=== PATIENT | female | born 2000 | race Caucasian/White ===

== ENCOUNTER 2020-01-05 21:59 | Emergency (ER) | payer OTHER ==
[~2020-01-05] VITALS: Ht 167.6 cm; Wt 74.8 kg
[2020-01-05 22:05] VITALS: BP_SYST 132
[2020-01-05 23:30] VITALS: BP_SYST 128
== END 2020-01-05 23:36 | disposition home or self-care (01) ==
LOC: SED 21:59
DX: H60.8X2 Other otitis externa, left ear (principal); H92.02 Otalgia, left ear
CPT/HCPCS: 99283

== ENCOUNTER 2020-11-21 12:36 | Emergency (ER) | payer OTHER ==
[~2020-11-21] VITALS: Ht 160 cm; Wt 72.6 kg
[2020-11-21 12:36] VITALS: BP_SYST 120
[2020-11-21] MEDS ORDERED: KETOROLAC TROMETHAMINE 60 MG/2 ML VIAL IM ONE (13:00)
[2020-11-21 13:38] LABS: BASOPHILS % (AUTO) 0.8 % (0.0-2.0); EOSINOPHILS # (AUTO) 0.1 K/uL (0.0-0.4); EOSINOPHILS % (AUTO) 1.3 % (0.0-4.0); HEMATOCRIT 41.3 % (36-48); HEMOGLOBIN 13.7 g/dL (12.0-16.0); MEAN CORPUSCULAR HEMOGLOBIN 29 pg (27-31); MEAN CORPUSCULAR HGB CONC 33 % (32-36); MEAN CORPUSCULAR VOLUME 87 fL (79.0-98.0); MONOCYTES # (AUTO) 0.5 K/uL (0.0-1.0); NEUTROPHILS # (AUTO) 3.3 K/uL (1.8-7.7); NEUTROPHILS % (AUTO) 55.9 % (40.0-70.0); PLATELET COUNT (AUTO) 222 K/uL (130-430); RED BLOOD CELL COUNT(AUTO) 4.78 MIL/uL (4.2-6.2); RED CELL DISTRIBUTION WIDTH 13.4 % (9.0-15.0)
[2020-11-21 13:54] LABS: CALCIUM 8.2 mg/dL (8.4-11.0); CREATININE 0.65 mg/dL (0.55-1.30)
[2020-11-21 14:01] LABS: ALBUMIN 3.7 g/dL (3.4-4.8); TOTAL BILIRUBIN 0.4 mg/dL (0.0-1.0)
[2020-11-21] MEDS ORDERED: NAPR-688 PO (14:33)
[2020-11-21 14:48] VITALS: BP_SYST 120
== END 2020-11-21 14:49 | disposition home or self-care (01) ==
LOC: SED 12:36
DX: R42 Dizziness and giddiness (principal); M79.18 Myalgia, other site; Z20.822 Contact with and (suspected) exposure to COVID-19
CPT/HCPCS: 36415; 80053; 85025; 93005; 96372; 99284; C9803; J1885; U0003

== ENCOUNTER 2021-04-11 20:17 | Emergency (ER) | payer OTHER ==
[~2021-04-11] VITALS: Ht 175.3 cm; Wt 68.5 kg
[~2021-04-11 20:17] MED LIST: NAPR-688 PO
[2021-04-11 20:20] VITALS: BP_SYST 108
== END 2021-04-11 22:45 | disposition left against medical advice (07) ==
LOC: SED 20:17
DX: M54.9 Dorsalgia, unspecified (principal); Z53.21 Procedure and treatment not carried out due to patient leaving prior to being seen by health care provider

== ENCOUNTER 2021-12-16 11:20 | Emergency (ER) | payer OTHER ==
[~2021-12-16] VITALS: Ht 165.1 cm; Wt 77.1 kg
[2021-12-16 11:20] VITALS: BP_SYST 137
--- NOTE | 2021-12-16 11:30 | NUR ---
Pt brought back to hallway bed for evaluation.
--- NOTE | 2021-12-16 11:32 | NUR ---
Pt AAO and ambulatory reporting sudden onset of back pain. Pt denies any acute injury or trauma. Pt reports that she is a few weeks and her first OB appointment is in 3 days. Pt reports that the pain began yesterday and became worse today. Pt rates pain 8/10 and denies any prior medical history.
--- NOTE | 2021-12-16 11:40 | NUR ---
Dr. Kaur at bedside to assess.
[2021-12-16] MEDS ORDERED: ACETAMINOPHEN 500 MG TABLET PO ONE (11:45)
[2021-12-16 12:09] VITALS: BP_SYST 137
--- NOTE | 2021-12-16 12:10 | NUR ---
Patient given written and verbal discharge instructions and verbalizes understanding. ER MD discussed with patient the results and treatment provided. Patient in stable condition. ID arm band removed. No Rx given. Patient educated on pain management and to follow up with PMD. Pain Scale 0/10 Opportunity for questions provided and answered. Medication side effect fact sheet provided.
== END 2021-12-16 12:09 | disposition home or self-care (01) ==
LOC: SED 11:20
DX: S29.012A Strain of muscle and tendon of back wall of thorax, initial encounter (principal); X50.9XXA Other and unspecified overexertion or strenuous movements or postures, initial encounter; Y93.89 Activity, other specified; Y92.89 Other specified places as the place of occurrence of the external cause; Y99.8 Other external cause status
CPT/HCPCS: 99282

== ENCOUNTER 2022-06-13 16:30 | Emergency (ER) | payer MEDICAID, OTHER ==
[~2022-06-13] VITALS: Ht 162.6 cm; Wt 76.7 kg
[2022-06-13 16:37] VITALS: BP_SYST 116
[2022-06-13 18:13] LABS: BASOPHILS # (AUTO) 0.1 K/uL (0.0-0.2); BASOPHILS % (AUTO) 0.7 % (0.0-2.0); EOSINOPHILS # (AUTO) 0.1 K/uL (0.0-0.4); EOSINOPHILS % (AUTO) 1.4 % (0.0-4.0); HEMATOCRIT 39.9 % (36-48); HEMOGLOBIN 13.9 g/dL (12.0-16.0); LYMPHOCYTES # (AUTO) 2.3 K/uL (1.0-5.5); LYMPHOCYTES % (AUTO) 28.5 % (20.5-51.5); MEAN CORPUSCULAR HEMOGLOBIN 30 pg (27-31); MEAN CORPUSCULAR HGB CONC 35 % (32-36); MEAN CORPUSCULAR VOLUME 85 fL (79.0-98.0); MONOCYTES # (AUTO) 0.6 K/uL (0.0-1.0); MONOCYTES % (AUTO) 7.3 % (1.7-9.3); NEUTROPHILS # (AUTO) 5.1 K/uL (1.8-7.7); NEUTROPHILS % (AUTO) 62.1 % (40.0-70.0); PLATELET COUNT (AUTO) 224 K/uL (130-430); RED BLOOD CELL COUNT(AUTO) 4.69 MIL/uL (4.2-6.2); RED CELL DISTRIBUTION WIDTH 13.1 % (9.0-15.0); WHITE BLOOD COUNT (AUTO) 8.2 K/uL (4.8-10.8)
[2022-06-13 18:31] LABS: CALCIUM 8.5 mg/dL (8.4-11.0); CREATININE 1.16 mg/dL (0.55-1.30)
[2022-06-13 18:36] LABS: ALBUMIN 3.8 g/dL (3.4-4.8); TOTAL BILIRUBIN 0.3 mg/dL (0.0-1.0)
--- NOTE | 2022-06-13 18:38 | NUR ---
Placed in room 3 . Placed on environmental monitoring technician, blood pressure machine and pulse oximeter. To gown for exam. Side rails up. Report given to NIKA MILLER.
[2022-06-13 18:45] LABS: BILIRUBIN,URINE NEGATIVE (NEGATIVE); BLOOD, URINE NEGATIVE (NEGATIVE); CLARITY/URINE CLEAR (CLEAR); COLOR,URINE YELLOW (YELLOW); GLUCOSE,URINE NEGATIVE (NEGATIVE); KETONES,URINE NEGATIVE (NEGATIVE); LEUKOCYTE ESTERASE ,URINE NEGATIVE (NEGATIVE); NITRITE, URINE NEGATIVE (NEGATIVE); PROTEIN URINE NEGATIVE (NEGATIVE); UROBILINOGEN,URINE 0.2 (0.2-1.0)
--- NOTE | 2022-06-13 18:47 | NUR ---
BIB MOTHER WITH C/C OF TWO WEEKS OF HAVING DIARRHEA AFTER EVERY REGULAR MEAL. PT STATES SHE HAS 2-3 EPISODES AFTER HAVING LIGHT BREAKFAST AND LUNCH. REPORTS DIARRHEA NOT PREVALANT IN NIGHT AND STATES SHE DOES NOT EAT FULL MEALS IN THE NIGHT. DENIES ANY CURRENT PAIN BUT REPORTS PAIN IS INTERMITTANT AND COMES AND GOES. STATES WHEN IN PAIN IT IS 5/10 FROM BILATERAL LOWER QUADRANTS AND LEFT UPPER QUADRANT, CRAMPING IN NATURE. PT HAS PMD APPOINTMENT NEXT THURSDAY BUT MOTHER WANTED HER TO SEE MD TODAY. DR COWART MADE AWARE.
--- NOTE | 2022-06-13 18:56 | NUR ---
DR. COWART SEEN AND EVALUATED PT. PLAN FOR DC WITH RX AND PT TO F/U WITH PMD FOR GI REFERRAL.
[2022-06-13] MEDS ORDERED: IMO2 PO (18:57)
[2022-06-13] MEDS ORDERED: DICY10CA13 PO (18:59)
[2022-06-13 19:10] VITALS: BP_SYST 121
--- NOTE | 2022-06-13 19:12 | NUR ---
PT CLEARED FOR DC BY DR. COWART. VITO NOTED. DENIES PAIN. VSS, AFEBRILE. PT VERBALIZED UNDERSTANDING OF DC INSTRUCTIONS. RX SENT TO PT'S PHARM. PT AMBULATED OUT OF ED IN STABLE CONDITION.
== END 2022-06-13 19:10 | disposition home or self-care (01) ==
LOC: SED 16:30
DX: R10.84 Generalized abdominal pain (principal); R19.7 Diarrhea, unspecified; Z79.899 Other long term (current) drug therapy
CPT/HCPCS: 36415; 80053; 81003; 81025; 83690; 85025; 99283

== ENCOUNTER 2022-07-03 19:06 | Emergency (ER) | payer MEDICAID ==
[~2022-07-03] VITALS: Ht 162.6 cm; Wt 77.1 kg
[~2022-07-03 19:06] MED LIST changes: +DICY10CA13 PO; +IMO2 PO
[2022-07-03 19:19] VITALS: BP_SYST 131
--- NOTE | 2022-07-03 19:24 | NUR ---
PATIENT STATES THAT SHE WAS SEEN HERE FOR DIARRHEA AROUND 06/24 AND TOLD TO COME BACK IN IF IT CAME BACK. PATIENT HAS HAD INCREASE IN DIARRHEA SINCE 06/30 WITH LEFT LOWER QUADRANT PAIN.
[2022-07-03 20:59] LABS: BASOPHILS % (AUTO) 0.6 % (0.0-2.0); EOSINOPHILS # (AUTO) 0.1 K/uL (0.0-0.4); EOSINOPHILS % (AUTO) 1.9 % (0.0-4.0); HEMATOCRIT 40.5 % (36-48); HEMOGLOBIN 13.8 g/dL (12.0-16.0); LYMPHOCYTES # (AUTO) 2.6 K/uL (1.0-5.5); LYMPHOCYTES % (AUTO) 33.8 % (20.5-51.5); MEAN CORPUSCULAR HEMOGLOBIN 29 pg (27-31); MEAN CORPUSCULAR HGB CONC 34 % (32-36); MEAN CORPUSCULAR VOLUME 85 fL (79.0-98.0); MONOCYTES # (AUTO) 0.7 K/uL (0.0-1.0); MONOCYTES % (AUTO) 9.1 % (1.7-9.3); NEUTROPHILS # (AUTO) 4.2 K/uL (1.8-7.7); NEUTROPHILS % (AUTO) 54.6 % (40.0-70.0); PLATELET COUNT (AUTO) 232 K/uL (130-430); RED BLOOD CELL COUNT(AUTO) 4.75 MIL/uL (4.2-6.2); RED CELL DISTRIBUTION WIDTH 12.9 % (9.0-15.0); WHITE BLOOD COUNT (AUTO) 7.6 K/uL (4.8-10.8)
--- NOTE | 2022-07-03 21:05 | NUR ---
PATIENT TAKEN TO BED 4 FOR EVAL, REPORT GIVEN TO NIKA GARCIA.
[2022-07-03 21:17] LABS: CREATININE 0.64 mg/dL (0.55-1.30)
[2022-07-03 21:22] LABS: ALBUMIN 4.1 g/dL (3.4-4.8); TOTAL BILIRUBIN 0.2 mg/dL (0.0-1.0)
--- NOTE | 2022-07-03 21:26 | NUR ---
Pt from home with c/o of lower left abd pain and diarrhea since thursday. Pt states the stools have been non-stop since then. Denies N/V and blood in the stool. Safety precautions in place and connected to monitor.
[2022-07-03 21:47] LABS: BILIRUBIN,URINE NEGATIVE (NEGATIVE); CLARITY/URINE SL CLOUDY (CLEAR); GLUCOSE,URINE NEGATIVE (NEGATIVE); KETONES,URINE TRACE (NEGATIVE); LEUKOCYTE ESTERASE ,URINE NEGATIVE (NEGATIVE); NITRITE, URINE NEGATIVE (NEGATIVE); PROTEIN URINE NEGATIVE (NEGATIVE)
[2022-07-03 22:06] LABS: BLOOD, URINE TRACE (NEGATIVE)
[2022-07-03 22:09] LABS: COLOR,URINE YELLOW (YELLOW)
--- NOTE | 2022-07-03 22:10 | NUR ---
Dr. Krishna at bedside with patient for evaluation.
[2022-07-03] MEDS ORDERED: DICYCLOMINE HCL 20 MG/2 ML AMP IM ONE (22:15)
[2022-07-03] MEDS ORDERED: NACL 0.9% 1,000 ML IV ONE (22:15)
[2022-07-03 22:20] LABS: BACTERIA,URINE FEW /HPF (None Seen); MUCUS,URINE 1+ /LPF (None Seen); RBC,URINE 0-3 /HPF (0-3); WBC,URINE 0-3 /HPF (0-3)
[2022-07-03] MEDS ORDERED: HYOS0.1275 PO (23:47)
[2022-07-03] MEDS ORDERED: LOPE2CAP PO (23:47)
[2022-07-03] MEDS ORDERED: ONDA-8 TL (23:47)
[2022-07-04 00:16] VITALS: BP_SYST 109
--- NOTE | 2022-07-04 00:16 | NUR ---
Patient given written and verbal discharge instructions and verbalizes understanding. ER Dr. Krishna discussed with patient the results and treatment provided. Patient in stable condition. ID arm band removed. IV catheter removed intact and dressing applied, no active bleeding. Rx of zofran,blanco-sl, and zofran given. Patient educated on pain management and to follow up with PMD. Pain Scale 0. Opportunity for questions provided and answered. Medication side effect fact sheet provided.
== END 2022-07-04 00:16 | disposition home or self-care (01) ==
LOC: SED 19:06
DX: K58.0 Irritable bowel syndrome with diarrhea (principal); R10.32 Left lower quadrant pain; Z79.899 Other long term (current) drug therapy
CPT/HCPCS: 99283; 96374; 96361; 80053; 81000; 83690; 85025; 36415; 81025; J0500; J7030